=== PATIENT | male | born 1965 | race Caucasian/White ===

== ENCOUNTER 2017-10-31 10:30 | Emergency (ER) | payer MEDICAID ==
[~2017-10-31] VITALS: Ht 160 cm; Wt 55.0 kg
[2017-10-31] MEDS ORDERED: POVIDONE-IODINE 10% TOPICAL SOLN 240ML TOP ONE (11:45)
[2017-10-31 12:35] VITALS: BP 122/71
== END 2017-10-31 12:39 | disposition home or self-care (01) ==
LOC: ER 11:02
DX: S01.431A Puncture wound without foreign body of right cheek and temporomandibular area, initial encounter (principal); F12.10 Cannabis abuse, uncomplicated; W53.11XA Bitten by rat, initial encounter; Y93.89 Activity, other specified; Y92.89 Other specified places as the place of occurrence of the external cause; Y99.8 Other external cause status
CPT/HCPCS: 99283; A4246